=== PATIENT | female | born 1980 | race Caucasian/White ===

== ENCOUNTER 2016-10-23 11:04 | Emergency (ER) | payer MEDICAID ==
[~2016-10-23] VITALS: Ht 154.9 cm; Wt 85.0 kg
[2016-10-23 11:09] VITALS: Ht 154.9 cm; Wt 85.0 kg
[2016-10-23 11:57] LABS: ADD SCAN DIFF NO
[2016-10-23 12:01] LABS: BASOPHILS % 0.4 % (0.0-2.0); EOSINOPHILS # 0.5 10^3/ul (0.0-0.5); EOSINOPHILS % 5.1 % (0.0-7.0); HEMATOCRIT 32.9 % (37.0-47.0); HEMOGLOBIN 11.3 g/dl (12.0-16.0); LYMPHOCYTES # 1.7 10^3/ul (0.8-2.9); LYMPHOCYTES % 17.3 % (15.0-51.0); MEAN CORPUSCULAR HEMOGLOBIN 31.1 pg (29.0-33.0); MEAN CORPUSCULAR HGB CONC 34.3 g/dl (32.0-37.0); MEAN CORPUSCULAR VOLUME 90.6 fl (82.0-101.0); MEAN PLATELET VOLUME 10.1 fl (7.4-10.4); MONOCYTE # 0.6 10^3/ul (0.3-0.9); MONOCYTES % 6.1 % (0.0-11.0); NEUTROPHILS % 69.8 % (39.0-77.0); PLATELET COUNT 225 10^3/UL (140-415); RED BLOOD COUNT 3.63 10^6/ul (4.20-5.40); RED CELL DISTRIBUTION WIDTH 13.2 % (11.5-14.5)
[2016-10-23 12:02] LABS: ADD UMIC YES; URINE BILIRUBIN (Dip) NEGATIVE (NEGATIVE); URINE BLOOD (Dip) NEGATIVE (NEGATIVE); URINE COLOR LT. YELLOW (YELLOW); URINE GLUCOSE (Dip) NEGATIVE (NEGATIVE); URINE KETONES (Dip) NEGATIVE (NEGATIVE); URINE LEUKOCYTE ESTERASE (Dip) TRACE (NEGATIVE); URINE NITRITE (Dip) NEGATIVE (NEGATIVE); URINE TOTAL PROTEIN (Dip) NEGATIVE (NEGATIVE); URINE UROBILINOGEN (Dip) 0.2 E.U./dL (0.1-1.0)
[2016-10-23 12:24] LABS: URINE RBCS 0-2 /HPF (0)
--- NOTE | 2016-10-23 12:35 | RADRPT ---
PROCEDURE: US OB. CLINICAL INDICATION: Vaginal bleeding TECHNIQUE: Multiple sonographic images of the pelvis and gravid uterus were obtained. The images were reviewed on a PACS workstation. COMPARISON: No prior studies are available for comparison. FINDINGS: There is a single viable intrauterine gestation. Cardiac activity is present with 137 beats per min maribel. There is a breech/variable presentation. The placenta is anterior. There is no evidence for an abruption or placenta previa. There is a normal amount of amniotic fluid with a MVP= 6.6 cm. Measurements were made in order to determine age. The results are as follows: BPD =4.8 cm HC =17.9 cm AC =15.7 cm FL =3.4 cm Estimated gestational age of approximately 20 weeks and 4 days based on ultrasound measurements. Clinical age: 19 weeks and 1 day. The estimated date of delivery is 03/08/17, based on ultrasound measurements. The EFW = 372 g, >97%, based on LMP age. RPTAT: AA IMPRESSION: Single viable intrauterine gestation of approximately 20 weeks and 4 days based on ultrasound measu rements. anatomy was not evaluated. .Anoop Menard MD, Date Time Electronically viewed and signed by .Anoop Menard MD, MD on 10/23/2016 12:34 .S/
[2016-10-23] MEDS ORDERED: NITR-58 PO (14:20)
--- NOTE | 2016-10-23 14:26 | ERD ---
ER Documentation Chief Complaint Date/Time DATE: 10/23/16 TIME: 14:23 Chief Complaint "spotting since this morning" 19 weeks , no pads changed HPI 36-year-old female patient who is a since the ED complaining of vaginal spotting that occurred earlier today at 5 AM. Reports that her POWER DISTRIBUTION ENGINEER is in [place]. Denies any dysuria, urgency, frequency, flank pain, abdominal pain , pelvic pain, nausea, vomiting, diarrhea, constipation. States that her last menses was on June 10, 2016. ROS All systems reviewed and are negative except as per history of present illness. Medications Home Meds Active Scripts Nitrofurantoin Monohyd Macrocr* (Macrobid*) 100 Mg Capsr, 100 MG PO BID for 7 Days, CAP Prov:PARVIZ BLANCA PA-C 10/23/16 Allergies Allergies: Coded Allergies: No Known Allergy (Unverified , 10/23/16) Physical Exam Vitals Vital Signs Date Time Temp Pulse Resp B/P Pulse Ox O2 Delivery O2 Flow Rate FiO2 10/23/16 11:09 97.6 78 18 117/59 98 Physical Exam Const: Ghr-ryw-[id number], well-nourished. In no acute distress. Head: Atraumatic, normocephalic Eyes: Normal Conjunctiva without injection. No purulent discharge. ENT: Normal external ear, nose. Moist oropharynx without tonsillar exudates. Non -erythematous pharynx. Uvula midline. No drooling. No trismus. Neck: No cervical midline tenderness. Full range of motion. No meningismus. No cervical lymphadenopathy. No JVD. Resp: Clear to auscultation bilaterally. No wheezing, rhonchi, rales, or crackles. No accessory muscle use. No retractions. Cardio: Regular rate and rhythm. No murmurs, rubs or gallops. Abd: Soft, nontender, non distended. Normal bowel sounds. No palpable masses. No rebound tenderness. No guarding. Negative McBurney's point. Negative psoas sign. Negative obturator sign. Skin: No petechiae or rashes Back: No midline tenderness. No CVA tenderness. Ext: No cyanosis, or edema. Neur: Awake and alert. Normal gait. Normal coordination. Psych: Normal Mood and Affect Result Diagram: 10/23/16 1150 Results 24 hrs Laboratory Tests Test 10/23/16 11:50 White Blood Count 10.010^3/ul Red Blood Count 3.6310^6/ul Hemoglobin 11.3g/dl Hematocrit 32.9% Mean Corpuscular Volume 90.6fl Mean Corpuscular Hemoglobin 31.1pg Mean Corpuscular Hemoglobin Concent 34.3g/dl Red Cell Distribution Width 13.2% Platelet Count 24608^3/UL Mean Platelet Volume 10.1fl Neutrophils % 69.8% Lymphocytes % 17.3% Monocytes % 6.1% Eosinophils % 5.1% Basophils % 0.4% Nucleated Red Blood Cells % 0.0/100WBC Neutrophils # 7.010^3/ul Lymphocytes # 1.710^3/ul Monocytes # 0.610^3/ul Eosinophils # 0.510^3/ul Basophils # 0.010^3/ul Nucleated Red Blood Cells # 0.010^3/ul Urine Color LT. YELLOW Urine Clarity CLEAR Urine pH 6.0 Urine Specific Lisman <=1.005 Urine Ketones NEGATIVE Urine Nitrite NEGATIVE Urine Bilirubin NEGATIVE Urine Urobilinogen 0.2 E.U./dL Urine Leukocyte Esterase TRACE Urine Microscopic RBC 0-2/HPF Urine Microscopic WBC 2-5/HPF Urine Hemoglobin NEGATIVE Urine Glucose NEGATIVE% Urine Total Protein NEGATIVE Beta HCG, Quantitative 33688.0mIU/ml Procedures/MDM This is a 36-year-old female who is a presents to the ED complaining of vaginal spotting that occurred earlier today. Patient is afebrile and nontoxic- appearing. An ultrasound, beta-hCG, CBC, type and RH, UA was ordered to evaluate patient. CBC: No evidence of severe infection or anemia Urine: No elevation in nitrites, trace leukocyte esterase with WBC 2-5, hematuria Rh: O positive. No indication for Rhogam at this time. beta Hc PROCEDURE: US OB. CLINICAL INDICATION: Vaginal bleeding TECHNIQUE: Multiple sonographic images of the pelvis and gravid uterus were obtained. The images were reviewed on a PACS workstation. COMPARISON: No prior studies are available for comparison. FINDINGS: There is a single viable intrauterine gestation. Cardiac activity is present with 137 beats per minute. There is a breech/variable presentation. The placenta is anterior. There is no evidence for an abruption or placenta previa. There is a normal amount of amniotic fluid with a MVP= 6.6 cm. Measurements were made in order to determine age. The results are as follows: BPD = 4.8 cm HC = 17.9 cm AC = 15.7 cm FL = 3.4 cm Estimated gestational age of approximately 20 weeks and 4 days based on ultrasound measurements. Clinical age: 19 weeks and 1 day. The estimated date of delivery is 03/08/17, based on ultrasound measurements. The EFW = 372 g, >97%, based on LMP age. RPTAT: AA IMPRESSION: Single viable intrauterine gestation of approximately 20 weeks and 4 days based on ultrasound measurements. anatomy was not evaluated. Patient's bleeding symptoms have stabilized while in the department. Low suspicion for symptomatic anemia, ectopic , sepsis, PID, appendicitis, ovarian torsion, tubo-ovarian abscess, surgical abdomen, or other emergent conditions. Patient was educated that there is a risk for threatened . Discharge medications: Macrobid Patient strictly instructed to go upstairs to see the OB c python developer for further evaluation and treatment since she is 20 weeks . Patient to follow up with POWER DISTRIBUTION ENGINEER in 2 days for further evaluation and treatment. Patient is to return sooner to the ED for any worsening symptoms. Patient's questions were answered. Patient understood and agreed with discharge plan. Departure Diagnosis: Primary Impression: Vaginal bleeding in Trimester: second trimester Qualified Code: O46.92 - Vaginal bleeding in , second trimester Condition: Stable Patient Instructions: Urinary Tract Infections in Women, Vaginal Bleed in Referrals: [facility] YOU HAVE RECEIVED A MEDICAL SCREENING EXAM AND THE RESULTS INDICATE THAT YOU DO NOT HAVE A CONDITION THAT REQUIRES URGENT TREATMENT IN THE EMERGENCY DEPARTMENT. FURTHER EVALUATION AND TREATMENT OF YOUR CONDITION CAN WAIT UNTIL YOU ARE SEEN IN YOUR DOCTORS OFFICE WITHIN THE NEXT 1-2 DAYS. IT IS YOUR RESPONSIBILITY TO MAKE AN APPOINTMENT FOR FOLOW-UP CARE. IF YOU HAVE A PRIMARY DOCTOR --you should call your primary doctor and schedule an appointment IF YOU DO NOT HAVE A PRIMARY DOCTOR YOU CAN CALL OUR PHYSICIAN REFERRAL HOTLINE AT IF YOU CAN NOT AFFORD TO SEE A PHYSICIAN YOU CAN CHOSE FROM THE FOLLOWING [facility] [address] [facility]. [facility] [address] [facility] [facility] [address] [facility]. [facility] [address] [facility]. [facility] [address] [facility]. [facility]. [address] [facility]. [facility] YOU HAVE RECEIVED A MEDICAL SCREENING EXAM AND THE RESULTS INDICATE THAT YOU DO NOT HAVE A CONDITION THAT REQUIRES URGENT TREATMENT IN THE EMERGENCY DEPARTMENT. FURTHER EVALUATION AND TREATMENT OF YOUR CONDITION CAN WAIT UNTIL YOU ARE SEEN IN YOUR DOCTORS OFFICE WITHIN THE NEXT 1-2 DAYS. IT IS YOUR RESPONSIBILITY TO MAKE AN APPOINTMENT FOR FOLOW-UP CARE. IF YOU HAVE A PRIMARY DOCTOR --you should call your primary doctor and schedule and appointment IF YOU DO NOT HAVE A PRIMARY DOCTOR YOU CAN CALL OUR PHYSICIAN REFERRAL HOTLINE AT . IF YOU CAN NOT AFFORD TO SEE A PHYSICIAN YOU CAN CHOSE FROM THE FOLLOWING [facility] INSTITUTIONS: [facility] [address] [place] [address] [facility] [address] [place] [address] [facility] [address] [place] [address] [facility] URGENT CARE/SPECIALTIES POWER DISTRIBUTION ENG[place] [address] [facility] [address] [place], [place] [phone] OFFICE FAX [facility] [place], [place] [phone] [address] [place] [address] [place], [place] [phone] [address] [address] [facility], [address] [address] [address] [place] [phone] [facility] [address] [place] [phone] [address] [facility] [address] [address] MCCARTHY, [place] [address] [facility] [address] [address] MANUEL, FREYA [address] [facility]. [address], [facility] [address] [address] N[place], [place] [address] [place] [address] [facility] Hours: 8:00 am - 5:00 pm Additional Instructions: Hay que ir arriba a ms evaluacin y el tratamiento en la unidad de OB que sois ms de 20 semanas de embarazo nan, ahora mismo en 14:30 a 23/10/16. seguimiento de Obstetricia y Ginecologa en 2 blanco para evaluacin adicional y tratamiento. Regrese a estas instalaciones si no se mejora niko esperbamos o niko le dijimos. PARVIZ BLANCA PA-C October 23, 2016 14:26
== END 2016-10-23 14:34 | disposition home or self-care (01) ==
LOC: FTE 11:04
DX: O20.9 Hemorrhage in early pregnancy, unspecified (principal); Z3A.19 19 weeks gestation of pregnancy
CPT/HCPCS: 36415; 76805; 81001; 81003; 84702; 85025; 86900; 86901

== ENCOUNTER 2016-10-23 14:46 | Outpatient (CLI) | payer MEDICAID ==
[~2016-10-23] VITALS: Ht 154.9 cm; Wt 78.7 kg
[~2016-10-23 14:46] MED LIST: NITR-58 PO
[2016-10-23 15:11] VITALS: Ht 154.9 cm; Wt 78.7 kg
[2016-10-23 15:12] VITALS: BP 104/59; PULSE 73; RESP 18
--- NOTE | 2016-10-23 15:46 | RADRPT ---
PROCEDURE: Limited obstetric ultrasound CLINICAL INDICATION: Pain , labor TECHNIQUE: Multiple transverse and longitudinal grayscale images of the pelvis were obtained dalton svaginally.. COMPARISON: same day FINDINGS: The cervix is closed with a length of 4.9 cm. There is a small Nabothian cysts in the cervix. RPTAT: AA IMPRESSION: Cervix length measures 4.9 cm. .Anoop Menard MD, MD Date Time Electronically viewed and signed by .Anoop Menard MD, on 10/23/2016 15:46 .S/
--- NOTE | 2016-10-23 16:12 | QN ---
Documentation Comment OB triage 20+wks GA with Spotting,No CTX No LOF +FM No blood in vaginal vault CXL WNL --->discharged with precautions ANGLE PRINCE M.D. October 23, 2016 16:12
== END 2016-10-23 16:30 | disposition home or self-care (01) ==
LOC: OBT 14:46 → L-D 14:46 → OBT 16:30
PROVIDERS: ATTEND Obstetrics & Gynecology
DX: O26.852 Spotting complicating pregnancy, second trimester (principal); Z3A.20 20 weeks gestation of pregnancy
CPT/HCPCS: 76817; G0463